=== PATIENT | female | born 1945 | race Caucasian/White ===

== ENCOUNTER 2020-07-07 10:53 | Inpatient (IN) | payer MEDICARE ==
[~2020-07-07] VITALS: Ht 167.6 cm; Wt 108.9 kg
[2020-07-07] MEDS ORDERED: VANCOMYCIN 1GM/NS 250 ML 250 ML IV STA (11:03)
[2020-07-07] MEDS ORDERED: CEFEPIME HCL 1GM 1 GM in SODIUM CHLORIDE 0.9% 50ML 50 ML IV SCH (11:15)
[2020-07-07 11:48] LABS: BASOPHILS # (AUTO) 0.1 (0.0-0.1); BASOPHILS % 0.6 % (0.0-1.0); EOSINOPHILS # (AUTO) 0.1 (0.0-0.4); EOSINOPHILS % 0.6 % (0.0-6.0); HEMATOCRIT 38.9 % (34.2-44.1); HEMOGLOBIN 12.9 g/dL (12.0-16.0); LYMPHOCYTES # (AUTO) 2.3 (1.0-3.2); LYMPHOCYTES % 23.3 % (18.0-39.1); MEAN CORPUSCULAR HEMOGLOBIN 30.9 pg (28-32); MEAN CORPUSCULAR HGB CONC 33.2 g/dL (31-35); MEAN CORPUSCULAR VOLUME 93.1 fL (81-99); MONOCYTES # (AUTO) 1.1 (0.2-0.8); MONOCYTES % 10.8 % (4.4-11.3); NEUTROPHILS # (AUTO) 6.2 (2.1-6.9); NEUTROPHILS % 64.3 % (38.7-80.0); PLATELET COUNT 235 x10e3/uL (140-360); RED BLOOD COUNT 4.18 x10e6/uL (3.6-5.1); RED CELL DISTRIBUTION WIDTH 11.9 % (11.7-14.4)
[2020-07-07 12:03] LABS: ALANINE AMINOTRANSFERASE 6 IU/L (0-55); ALBUMIN 3.4 g/dL (3.5-5.0); ALBUMIN/GLOBULIN RATIO 0.8 (0.8-2.0); ALKALINE PHOSPHATASE 72 IU/L (40-150); ANION GAP 17.8 mmol/L (8-16); BLOOD UREA NITROGEN 13 mg/dL (7-26); BUN/CREATININE RATIO 13 (6-25); CALCIUM 9.2 mg/dL (8.4-10.2); CARBON DIOXIDE 25 mmol/L (22-29); CHLORIDE 96 mmol/L (98-107); CREATINE KINASE 36 IU/L (29-168); CREATININE, SERUM 0.99 mg/dL (0.57-1.11); EST GLOMERULAR FILTRATION RATE 55 ML/MIN (60-); GLUCOSE 177 mg/dL (74-118); POTASSIUM 3.8 mmol/L (3.5-5.1); SODIUM 135 mmol/L (136-145)
[2020-07-07] MEDS ORDERED: FENTANYL CITRATE/PF 100MCG/2 ML INJ ONE (12:12)
[2020-07-07] MEDS ORDERED: SODIUM CHLORIDE 0.9% 1000ML 1,000 ML IV ONE (12:15)
[2020-07-07] MEDS ORDERED: ONDANSETRON HCL INJ 2MG/ML 2ML 2 MG/ML VIAL IV PRN ×2 (12:30→22:00)
[2020-07-07] MEDS ORDERED: SEVOFLURANE INHAL SOLN 250 ML PEN BTL ONE (13:06)
[2020-07-07] MEDS ORDERED: PROPOFOL IV EMULSION 10 MG/ML 20 ML VIAL ONE (13:06)
[2020-07-07] MEDS ORDERED: LIDOCAINE HCL 2% LOCAL INJ 5 ML SDV VIAL INJ ONE (13:06)
[2020-07-07] MEDS ORDERED: ONDANSETRON HCL INJ 2MG/ML 2ML 2 MG/ML VIAL ONE (13:06)
[2020-07-07] MEDS: MORPHINE SULFATE INJ 2 MG/ML SYR IV PRN ×2 (13:20→18:37)
[2020-07-07 16:24] VITALS: BP 103/58
[2020-07-07 17:46] VITALS: BP 103/58
[2020-07-07] MEDS ORDERED: LEVOTHYROXINE112 MCG PO (18:15)
[2020-07-07] MEDS ORDERED: HYDROCHLOROTHIA25 MG PO (18:15)
[2020-07-07] MEDS ORDERED: ATORVASTATIN CA10 MG PO (18:15)
[2020-07-07] MEDS ORDERED: LISINOPRIL10 MG PO (18:15)
[2020-07-07] MEDS ORDERED: VENTOLIN HFA18 GM INH (18:15)
[2020-07-07] MEDS ORDERED: GABAPENTIN300 MG PO (18:15)
[2020-07-07] MEDS ORDERED: MOBIC15 MG PO (18:15)
[2020-07-07] MEDS ORDERED: METFORMIN HCL500 M1 PO (18:15)
[2020-07-07] MEDS ORDERED: GLIPIZIDE5 MG PO (18:15)
[2020-07-07] MEDS ORDERED: MONTELUKAST SOD10 MG PO (18:15)
[2020-07-07 20:00] VITALS: BP 110/53
[2020-07-07 21:00] VITALS: BP 110/53
[2020-07-07] MEDS: SODIUM CHLORIDE 0.9% 1000ML 1,000 ML IV SCH (22:00)
[2020-07-07] MEDS ORDERED: ACETAMINOPHEN 325 MG TAB PO PRN (22:00)
[2020-07-07] MEDS ORDERED: HYDROCODONE/APAP 7.5MG-325MG 1 EA TAB PO PRN (22:00)
[2020-07-07] MEDS: PIPERACILLIN/TAZOBAC 3.375 GM in SODIUM CHLORIDE 0.9% 50ML 50 ML IV SCH (22:00)
[2020-07-07] MEDS ORDERED: MAGNESIUM HYDROXIDE 30 ML UDC PO PRN (22:00)
[2020-07-07] MEDS ORDERED: HYDRALAZINE HCL 20 MG/ML VIAL IV PRN (22:00)
[2020-07-08] VITALS (8 sets, daily range): BP systolic 87–108; BP diastolic 44–66
[2020-07-08] MEDS: PIPERACILLIN/TAZOBAC 3.375 GM in SODIUM CHLORIDE 0.9% 50ML 50 ML IV SCH ×6 (05:02→21:01)
[2020-07-08 07:02] LABS: BASOPHILS # (AUTO) 0.1 (0.0-0.1); BASOPHILS % 0.8 % (0.0-1.0); EOSINOPHILS % 0.4 % (0.0-6.0); HEMATOCRIT 36.1 % (34.2-44.1); LYMPHOCYTES # (AUTO) 1.7 (1.0-3.2); LYMPHOCYTES % 16.2 % (18.0-39.1); MEAN CORPUSCULAR HEMOGLOBIN 31.4 pg (28-32); MEAN CORPUSCULAR HGB CONC 33.2 g/dL (31-35); MEAN CORPUSCULAR VOLUME 94.5 fL (81-99); MONOCYTES # (AUTO) 1.3 (0.2-0.8); MONOCYTES % 12.2 % (4.4-11.3); NEUTROPHILS # (AUTO) 7.4 (2.1-6.9); PLATELET COUNT 210 x10e3/uL (140-360); RED BLOOD COUNT 3.82 x10e6/uL (3.6-5.1); RED CELL DISTRIBUTION WIDTH 11.8 % (11.7-14.4)
[2020-07-08] MEDS ORDERED: ACETAMINOPHEN 1000 MG/100 ML 100 ML IV ONE (07:28)
[2020-07-08 07:32] LABS: ANION GAP 16.3 mmol/L (8-16); CALCIUM 8.5 mg/dL (8.4-10.2); CREATININE, SERUM 0.92 mg/dL (0.57-1.11); POTASSIUM 4.3 mmol/L (3.5-5.1)
[2020-07-08] MEDS ORDERED: HYDROCODONE/APAP 5MG-325MG TAB PO PRN ×2 (08:00→13:00)
[2020-07-08] MEDS ORDERED: MORPHINE SULFATE INJ 4 MG/ML INJ 1ML IV PRN (08:00)
[2020-07-08] MEDS ORDERED: ACETAMINOPHEN 325 MG TAB PO PRN ×2 (08:00→12:30)
[2020-07-08] MEDS ORDERED: ONDANSETRON HCL INJ 2MG/ML 2ML 2 MG/ML VIAL IV PRN ×2 (08:00→12:30)
[2020-07-08] MEDS: SENNA-S TABLET PO SCH ×2 (09:28→17:05)
[2020-07-08] MEDS: MORPHINE SULFATE INJ 2 MG/ML SYR IV PRN (09:29)
[2020-07-08] MEDS: VANCOMYCIN 1GM/NS 250 ML 250 ML IV SCH (09:34)
[2020-07-08] MEDS: SODIUM CHLORIDE 0.9% 1000ML 1,000 ML IV SCH (11:00)
[2020-07-08] MEDS ORDERED: MELATONIN 5 MG TABLET PO PRN (12:30)
[2020-07-08] MEDS ORDERED: POTASSIUM CHLORIDE 20 MEQ TAB CR PO PRN (12:30)
[2020-07-08] MEDS ORDERED: DIPHENHYDRAMINE HCL 25 MG CAP PO PRN (12:30)
[2020-07-08] MEDS ORDERED: DEXTROSE 50% SYRINGE 50 ML IV PRN ×2 (12:30→13:00)
[2020-07-08] MEDS ORDERED: BENZONATATE 100 MG CAP PO PRN (12:30)
[2020-07-08] MEDS ORDERED: SIMETHICONE 80 MG CHEW PO PRN (12:30)
[2020-07-08] MEDS ORDERED: HYDRALAZINE HCL 20 MG/ML VIAL IV PRN (12:30)
[2020-07-08] MEDS ORDERED: POLYETHYLENE GLYCOL 3350 17 GM PACK PO PRN (12:30)
[2020-07-08] MEDS: INSULIN REGULAR, HUMAN 100 UNIT/1 ML 3ML VIAL SQ SCH ×2 (17:04→20:57)
[2020-07-08] MEDS: GABAPENTIN 300 MG CAP PO SCH (17:05)
[2020-07-09] VITALS (8 sets, daily range): BP systolic 92–107; BP diastolic 37–68
[2020-07-09] MEDS: PIPERACILLIN/TAZOBAC 3.375 GM in SODIUM CHLORIDE 0.9% 50ML 50 ML IV SCH ×3 (05:23→21:21)
[2020-07-09] MEDS: LEVOTHYROXINE SODIUM 112 MCG TAB PO SCH (06:36)
[2020-07-09 07:01] LABS: BASOPHILS # (AUTO) 0.1 (0.0-0.1); BASOPHILS % 0.6 % (0.0-1.0); EOSINOPHILS % 0.1 % (0.0-6.0); HEMATOCRIT 32.9 % (34.2-44.1); LYMPHOCYTES # (AUTO) 1.4 (1.0-3.2); LYMPHOCYTES % 11.3 % (18.0-39.1); MEAN CORPUSCULAR HEMOGLOBIN 31.7 pg (28-32); MEAN CORPUSCULAR HGB CONC 33.4 g/dL (31-35); MEAN CORPUSCULAR VOLUME 94.8 fL (81-99); MONOCYTES % 7.8 % (4.4-11.3); NEUTROPHILS % 79.6 % (38.7-80.0); PLATELET COUNT 207 x10e3/uL (140-360); RED BLOOD COUNT 3.47 x10e6/uL (3.6-5.1); RED CELL DISTRIBUTION WIDTH 11.9 % (11.7-14.4)
[2020-07-09 07:15] LABS: ANION GAP 18.7 mmol/L (8-16); CALCIUM 8.1 mg/dL (8.4-10.2); CREATININE, SERUM 2.48 mg/dL (0.57-1.11); POTASSIUM 4.7 mmol/L (3.5-5.1)
[2020-07-09] MEDS: INSULIN REGULAR, HUMAN 100 UNIT/1 ML 3ML VIAL SQ SCH ×4 (09:00→21:17)
[2020-07-09] MEDS: PANTOPRAZOLE SOD 40 MG TABEC PO SCH (09:07)
[2020-07-09] MEDS: SENNA-S TABLET PO SCH ×2 (09:08→16:31)
[2020-07-09] MEDS: MONTELUKAST SODIUM 10 MG TAB PO SCH (09:08)
[2020-07-09] MEDS: GABAPENTIN 300 MG CAP PO SCH ×2 (09:08→16:31)
[2020-07-09] MEDS: VANCOMYCIN 1GM/NS 250 ML 250 ML IV SCH (09:08)
[2020-07-10] VITALS (10 sets, daily range): BP systolic 88–122; BP diastolic 46–70
[2020-07-10] MEDS: PIPERACILLIN/TAZOBAC 3.375 GM in SODIUM CHLORIDE 0.9% 50ML 50 ML IV SCH ×3 (05:28→22:00)
[2020-07-10] MEDS: LEVOTHYROXINE SODIUM 112 MCG TAB PO SCH (05:30)
[2020-07-10 06:31] LABS: BASOPHILS # (AUTO) 0.1 (0.0-0.1); BASOPHILS % 0.5 % (0.0-1.0); EOSINOPHILS # (AUTO) 0.1 (0.0-0.4); EOSINOPHILS % 0.6 % (0.0-6.0); HEMATOCRIT 33.3 % (34.2-44.1); HEMOGLOBIN 10.8 g/dL (12.0-16.0); LYMPHOCYTES # (AUTO) 1.7 (1.0-3.2); LYMPHOCYTES % 12.8 % (18.0-39.1); MEAN CORPUSCULAR HEMOGLOBIN 30.5 pg (28-32); MEAN CORPUSCULAR HGB CONC 32.4 g/dL (31-35); MEAN CORPUSCULAR VOLUME 94.1 fL (81-99); MONOCYTES # (AUTO) 0.7 (0.2-0.8); MONOCYTES % 4.9 % (4.4-11.3); NEUTROPHILS # (AUTO) 10.7 (2.1-6.9); NEUTROPHILS % 80.6 % (38.7-80.0); PLATELET COUNT 237 x10e3/uL (140-360); RED BLOOD COUNT 3.54 x10e6/uL (3.6-5.1)
[2020-07-10 06:41] LABS: ANION GAP 18.5 mmol/L (8-16); CALCIUM 8.3 mg/dL (8.4-10.2); CHOL/HDL RATIO 4.1 (3.0-3.6); CREATININE, SERUM 3.4 mg/dL (0.57-1.11); POTASSIUM 4.5 mmol/L (3.5-5.1)
[2020-07-10 07:05] LABS: THYROID STIMULATING HORMONE 1.672 uIU/mL (0.350-4.940)
[2020-07-10] MEDS: PANTOPRAZOLE SOD 40 MG TABEC PO SCH (08:42)
[2020-07-10] MEDS: SENNA-S TABLET PO SCH ×2 (08:42→16:45)
[2020-07-10] MEDS: GABAPENTIN 300 MG CAP PO SCH ×2 (08:42→16:45)
[2020-07-10] MEDS: MONTELUKAST SODIUM 10 MG TAB PO SCH (08:42)
[2020-07-10] MEDS: INSULIN REGULAR, HUMAN 100 UNIT/1 ML 3ML VIAL SQ SCH ×4 (08:51→21:00)
[2020-07-10] MEDS: VANCOMYCIN 1GM/NS 250 ML 250 ML IV SCH (11:20)
[2020-07-11] VITALS (7 sets, daily range): BP systolic 98–121; BP diastolic 53–74
[2020-07-11] MEDS: PIPERACILLIN/TAZOBAC 3.375 GM in SODIUM CHLORIDE 0.9% 50ML 50 ML IV SCH ×2 (06:00→14:31)
[2020-07-11] MEDS: LEVOTHYROXINE SODIUM 112 MCG TAB PO SCH (06:08)
[2020-07-11 07:00] LABS: BASOPHILS % 0.5 % (0.0-1.0); EOSINOPHILS # (AUTO) 0.2 (0.0-0.4); EOSINOPHILS % 2.3 % (0.0-6.0); HEMATOCRIT 32.9 % (34.2-44.1); HEMOGLOBIN 10.9 g/dL (12.0-16.0); LYMPHOCYTES # (AUTO) 1.3 (1.0-3.2); LYMPHOCYTES % 16.1 % (18.0-39.1); MEAN CORPUSCULAR HEMOGLOBIN 31.3 pg (28-32); MEAN CORPUSCULAR HGB CONC 33.1 g/dL (31-35); MEAN CORPUSCULAR VOLUME 94.5 fL (81-99); MONOCYTES # (AUTO) 0.5 (0.2-0.8); NEUTROPHILS # (AUTO) 6.1 (2.1-6.9); NEUTROPHILS % 74.5 % (38.7-80.0); PLATELET COUNT 250 x10e3/uL (140-360); RED BLOOD COUNT 3.48 x10e6/uL (3.6-5.1); RED CELL DISTRIBUTION WIDTH 11.9 % (11.7-14.4)
[2020-07-11 07:41] LABS: ANION GAP 15.2 mmol/L (8-16); CALCIUM 8.4 mg/dL (8.4-10.2); CREATININE, SERUM 2.64 mg/dL (0.57-1.11); POTASSIUM 4.2 mmol/L (3.5-5.1)
[2020-07-11] MEDS: INSULIN REGULAR, HUMAN 100 UNIT/1 ML 3ML VIAL SQ SCH ×4 (08:14→21:00)
[2020-07-11] MEDS: VANCOMYCIN 1GM/NS 250 ML 250 ML IV SCH (08:17)
[2020-07-11] MEDS: GABAPENTIN 300 MG CAP PO SCH ×2 (08:17→16:42)
[2020-07-11] MEDS: PANTOPRAZOLE SOD 40 MG TABEC PO SCH (08:17)
[2020-07-11] MEDS: SENNA-S TABLET PO SCH ×2 (08:18→16:42)
[2020-07-11] MEDS: MONTELUKAST SODIUM 10 MG TAB PO SCH (08:18)
[2020-07-11] MEDS: SODIUM CHLORIDE 0.9% 1000ML 1,000 ML IV SCH (15:30)
[2020-07-11] MEDS ORDERED: CEFTRIAXONE SOD 1 GM/50 ML BAG IV SCH (17:30)
[2020-07-11] MEDS ORDERED: CEFTRIAXONE SOD 1 GM in SODIUM CHLORIDE 0.9% 50ML 50 ML IV SCH (18:00)
[2020-07-12] VITALS (9 sets, daily range): BP systolic 100–123; BP diastolic 64–87
[2020-07-12] MEDS: SODIUM CHLORIDE 0.9% 1000ML 1,000 ML IV SCH ×2 (02:08→11:24)
[2020-07-12 06:10] LABS: BASOPHILS # (AUTO) 0.1 (0.0-0.1); BASOPHILS % 0.9 % (0.0-1.0); EOSINOPHILS # (AUTO) 0.2 (0.0-0.4); EOSINOPHILS % 3.7 % (0.0-6.0); HEMATOCRIT 35.9 % (34.2-44.1); HEMOGLOBIN 11.7 g/dL (12.0-16.0); LYMPHOCYTES # (AUTO) 1.4 (1.0-3.2); LYMPHOCYTES % 24.3 % (18.0-39.1); MEAN CORPUSCULAR HGB CONC 32.6 g/dL (31-35); MEAN CORPUSCULAR VOLUME 95.2 fL (81-99); MONOCYTES # (AUTO) 0.5 (0.2-0.8); NEUTROPHILS # (AUTO) 3.5 (2.1-6.9); NEUTROPHILS % 60.9 % (38.7-80.0); PLATELET COUNT 289 x10e3/uL (140-360); RED BLOOD COUNT 3.77 x10e6/uL (3.6-5.1); RED CELL DISTRIBUTION WIDTH 11.9 % (11.7-14.4)
[2020-07-12 06:29] LABS: ANION GAP 13.6 mmol/L (8-16); CALCIUM 8.7 mg/dL (8.4-10.2); CREATININE, SERUM 1.98 mg/dL (0.57-1.11); POTASSIUM 4.6 mmol/L (3.5-5.1)
[2020-07-12] MEDS: LEVOTHYROXINE SODIUM 112 MCG TAB PO SCH (06:30)
[2020-07-12] MEDS: PANTOPRAZOLE SOD 40 MG TABEC PO SCH (08:17)
[2020-07-12] MEDS: MONTELUKAST SODIUM 10 MG TAB PO SCH (08:17)
[2020-07-12] MEDS: GABAPENTIN 300 MG CAP PO SCH (08:17)
[2020-07-12] MEDS: SENNA-S TABLET PO SCH (08:18)
[2020-07-12] MEDS: INSULIN REGULAR, HUMAN 100 UNIT/1 ML 3ML VIAL SQ SCH ×3 (09:42→16:30)
[2020-07-12] MEDS ORDERED: ONDANSETRON HCL 4 MG ORAL DISINTEGRATING TAB PO PRN (10:45)
[2020-07-12] MEDS ORDERED: CLEOCIN HCL300 MG PO (15:50)
[2020-07-12 16:14] LABS: ANION GAP 13.9 mmol/L (8-16); CALCIUM 8.7 mg/dL (8.4-10.2); CREATININE, SERUM 1.84 mg/dL (0.57-1.11); POTASSIUM 4.9 mmol/L (3.5-5.1)
[2020-07-12] MEDS ORDERED: CLINDAMYCIN 600MG / 50ML 50 ML IV SCH (17:00)
== END 2020-07-12 17:13 | disposition home or self-care (01) | DRG 580 ==
LOC: ER 10:56 → ERHOLD 13:20 → MED/SURG3 16:09 → OBSVTOIN 07-09 15:45
PROVIDERS: ADMIT Internal Medicine; ATTEND Internal Medicine
PROC: 0J970ZZ Drainage of Back Subcutaneous Tissue and Fascia, Open Approach (ICD-10-PCS; principal; 2020-07-08 07:00)
DX: L02.212 Cutaneous abscess of back [any part, except buttock and flank] (principal); I97.89 Other postprocedural complications and disorders of the circulatory system, not elsewhere classified; I97.191 Other postprocedural cardiac functional disturbances following other surgery; N17.9 Acute kidney failure, unspecified; E11.9 Type 2 diabetes mellitus without complications; I48.91 Unspecified atrial fibrillation; E66.9 Obesity, unspecified; Z68.38 Body mass index [BMI] 38.0-38.9, adult; E11.40 Type 2 diabetes mellitus with diabetic neuropathy, unspecified; Z79.899 Other long term (current) drug therapy; E03.9 Hypothyroidism, unspecified; Z20.822 Contact with and (suspected) exposure to COVID-19
CPT/HCPCS: 36415; 72128; 80048; 80053; 80061; 80202; 82550; 82553; 82948; 83036; 83605; 84443; 84484; 85025; 87040; 87071; 87075; 87205; 93005; 96372; 99284; G0378; J0692; J0696; J1817; J2001; J2270; J2405; J2543; J3010; J3370; J7030; U0002

== ENCOUNTER 2021-06-30 17:54 | Emergency (ER) | payer MEDICARE ==
[~2021-06-30] VITALS: Ht 167.6 cm; Wt 108.9 kg
[~2021-06-30 17:54] MED LIST: ATORVASTATIN CA10 MG PO; CLEOCIN HCL300 MG PO; GABAPENTIN300 MG PO; GLIPIZIDE5 MG PO; HYDROCHLOROTHIA25 MG PO; LEVOTHYROXINE112 MCG PO; LISINOPRIL10 MG PO; METFORMIN HCL500 M1 PO; MOBIC15 MG PO; MONTELUKAST SOD10 MG PO; VENTOLIN HFA18 GM INH
[2021-06-30 18:47] LABS: BASOPHILS # (AUTO) 0.1 (0.0-0.1); BASOPHILS % 0.7 % (0.0-1.0); EOSINOPHILS # (AUTO) 0.2 (0.0-0.4); EOSINOPHILS % 3.3 % (0.0-6.0); HEMATOCRIT 38.7 % (34.2-44.1); HEMOGLOBIN 12.5 g/dL (12.0-16.0); LYMPHOCYTES # (AUTO) 2.8 (1.0-3.2); LYMPHOCYTES % 39.6 % (18.0-39.1); MEAN CORPUSCULAR HGB CONC 32.3 g/dL (31-35); MONOCYTES # (AUTO) 0.7 (0.2-0.8); MONOCYTES % 10.3 % (4.4-11.3); NEUTROPHILS # (AUTO) 3.2 (2.1-6.9); NEUTROPHILS % 45.8 % (38.7-80.0); PLATELET COUNT 228 x10e3/uL (140-360); RED BLOOD COUNT 4.03 x10e6/uL (3.6-5.1); RED CELL DISTRIBUTION WIDTH 12.5 % (11.7-14.4)
[2021-06-30 18:58] LABS: ALBUMIN 3.8 g/dL (3.5-5.0); ALBUMIN/GLOBULIN RATIO 1.1 (0.8-2.0); ANION GAP 12.7 mmol/L (8-16); CALCIUM 9.7 mg/dL (8.4-10.2); CREATININE, SERUM 1.56 mg/dL (0.57-1.11); POTASSIUM 3.7 mmol/L (3.5-5.1)
[2021-06-30] MEDS ORDERED: DOXYCYCLINE HY100 MG PO (19:31)
== END 2021-06-30 19:46 | disposition home or self-care (01) ==
LOC: ER 18:05
DX: R05.9 Cough, unspecified (principal); J18.9 Pneumonia, unspecified organism; E11.65 Type 2 diabetes mellitus with hyperglycemia; I10 Essential (primary) hypertension; E78.5 Hyperlipidemia, unspecified; E03.9 Hypothyroidism, unspecified; J44.9 Chronic obstructive pulmonary disease, unspecified; G40.909 Epilepsy, unspecified, not intractable, without status epilepticus; Z85.828 Personal history of other malignant neoplasm of skin; F41.9 Anxiety disorder, unspecified
CPT/HCPCS: 36415; 71045; 80053; 83880; 84484; 85025; 93005; 99284